=== PATIENT | female | born 1970 | race Caucasian/White ===

== ENCOUNTER → 2017-06-29 | Outpatient (CLI) | payer OTHER | LOC: FIMAGING 08:48 | PROVIDERS: ATTEND Obstetrics & Gynecology Gynecology | DX: Z12.31 Encounter for screening mammogram for malignant neoplasm of breast (principal); Z80.3 Family history of malignant neoplasm of breast | CPT/HCPCS: G0202 ==

== ENCOUNTER → 2018-06-12 | Outpatient (CLI) | payer OTHER | LOC: FIMAGING 08:36 | PROVIDERS: ATTEND Physician Assistant Medical | DX: S92.531A Displaced fracture of distal phalanx of right lesser toe(s), initial encounter for closed fracture (principal) ==

== ENCOUNTER → 2018-07-03 | Outpatient (CLI) | payer OTHER | LOC: FIMAGING 07:40 | PROVIDERS: ATTEND Obstetrics & Gynecology Gynecology | DX: Z12.31 Encounter for screening mammogram for malignant neoplasm of breast (principal) ==

== ENCOUNTER 2018-10-15 08:38 | Emergency (ER) | payer OTHER ==
[2018-10-15] MEDS ORDERED: fentaNYL 100 MCG/2 ML INJ IVP ONE (08:52)
[2018-10-15] MEDS ORDERED: NS 1,000 ML IV ONE (08:52)
[2018-10-15] MEDS ORDERED: ONDANSETRON 4 MG/2 ML VIAL IVP ONE (08:52)
--- NOTE | 2018-10-15 09:02 | EDPHY ---
H & P Time Seen by Provider: 10/15/18 08:52 HPI/ROS: CHIEF COMPLAINT: Abdominal pain HISTORY OF PRESENT ILLNESS: The patient is a 48-year-old female who presents emergency department with right lower quadrant abdominal pain. The patient's symptoms started on Saturday. She had mild right lower quadrant pain that then became diffuse lower abdominal pain. It was vague and the patient thought she just had a slight bug. However, over the past day her symptoms have worsened and focused into the right lower quadrant. She has had no nausea or vomiting. No dysuria frequency. No fevers or chills. Patient just finished her menstrual cycle. Patient has no history of abdominal surgery. REVIEW OF SYSTEMS: 10 systems were reveiwed and are negative with the exception of the elements mentioned in the history of present illness. Past Medical/Surgical History: Includes hypothyroidism Past surgical history: No abdominal surgery Social history: Patient does not smoke Smoking Status: Never smoked Physical Exam: Vitals noted GENERAL: Mildly uncomfortable appearing, alert. HEENT: Eyes normal to inspection, normal pharynx, no signs of dehydration. NECK: Normal, supple. RESPIRATORY: Clear to auscultation bilaterally, no rales, rhonchi or wheezing. CVS: Regular rate and rhythm, no rubs, murmurs, or gallops. ABDOMEN: Soft, right lower quadrant tenderness to palpation with no rebound or guarding, nondistended, no organomegaly. BACK: Normal to inspection, no CVA tenderness. SKIN: Normal color, no rash, warm, dry. No pallor. EXTREMITIES: No pedal edema, no calf tenderness, no Homans sign or cords, no joint swelling. NEURO/PSYCH: Alert and oriented, normal mood and affect, normal motor sensory exam. Constitutional: Initial Vital Signs Temperature (C) 37.5 C 10/15/18 08:42 Heart Rate 72 10/15/18 08:42 Respiratory Rate 18 10/15/18 08:42 Blood Pressure 121/68 H 10/15/18 08:42 O2 Sat (%) 96 10/15/18 08:42 O2 Delivery Mode Room Air Allergies/Adverse Reactions: No Known Allergies Allergy (Verified 10/15/18 08:47) Home Medications: Medication Instructions Recorded Synthroid 05/19/15 Violet Allergy 10/15/18 Ondansetron Odt [Zofran Odt 4 mg 4 mg PO Q4PRN PRN #7 tab 10/15/18 (*)] oxyCODONE/APAP 5/325 [Percocet 1 - 2 tab PO Q4PRN PRN #11 tab 10/15/18 5/325 (*)] Medical Decision Making - Diagnostics Imaging Results: Imaging Impressions Pelvic/Renal Ultrasound 10/15/18 08:57 Impression: 1. Two complex cysts in the right ovary, which could represent hemorrhagic cysts but are nonspecific. Six-week follow up ultrasound is recommended. 2. 1.6 cm hypoechoic submucosal structure that could represent a submucosal fibroid, distorting the endometrium, polyp, or other etiology. If the patient has irregular bleeding, consider direct visualization. 3. Additional findings as above. Abdomen CT 10/15/18 10:44 Impression: 1. Complex fluid collection right adnexa, most likely related to acute hemorrhagic cyst in the right ovary. Given normal white count, tubo-ovarian abscess or phlegmon secondary to distal appendicitis are considered unlikely. Six-week follow-up ultrasound is recommended to document resolution of the findings. 2. Submucosal fibroid versus uterine polyp. 3. Additional findings as above. Findings discussed with Dr. Katty Dent on 10/15/2018 at 11:35. ED Course/Re-evaluation: In the emergency department I discussed possible etiologies with the patient. I answered all her questions. IV was placed. Patient was given normal saline 1 L IV for hydration. She was given fentanyl 50 mcg IV for pain. She is given Zofran 4 mg IV for potential nausea with the pain medication. Ultrasound was ordered. Patient's white count is mildly elevated at 10. Hematocrit is normal. Patient' s chemistry panel is unremarkable. Patient's is negative. UA shows 1+ leuk esterase. Negative nitrite. I rechecked the patient on return from ultrasound. She states she was cold. Her pain is better controlled. Ultrasound: Please refer the dictated report by Dr. Gay. The patient has no visible appendix. No signs of appendicitis. Patient has 2 complex cyst in the right ovary which could represent hemorrhagic cyst. There is a 1.6 cm hypoechoic submucosal structure that could represent a submucosal fibroid. I discussed the results with the patient. I answered all her questions. Patient states her pain was improved. However, on exam she start right lower quadrant tenderness palpation with no rebound or guarding. She is given Toradol 50 mg IV. I discussed diagnostic options. Patient would prefer CT imaging at this time. This was ordered. CT of the abdomen pelvis: Please refer the dictated report by Dr. Gay. There is a normal appearing base of the appendix. There is the ovarian cyst with free fluid present. 1200: I rechecked the patient. She was feeling much better. She had minimal right lower quadrant tenderness palpation with no rebound or guarding. The patient was given warnings. She felt comfortable with discharge. She will return with worsening symptoms. She understands limitations of testing thus far. Differential Diagnosis: My differential includes but is not limited to appendicitis, ovarian cyst, ovarian torsion, , ectopic , urinary tract infection, pyelonephritis, kidney stone, small-bowel obstruction, perforation, constipation - Data Points Laboratory Results: 10/15/18 08:56 POC Sodium 140 mEq/L mEq/L (135-145) POC Potassium 3.3 mEq/L mEq/L (3.3-5.0) POC Chloride 103.0 mEq/L mEq/L (97-110) POC Total CO2 26 mEq/L mEq/L (22-31) POC BUN 7 mg/dL mg/dL (7-23) POC Creatinine 0.8 mg/dL mg/dL (0.6-1.0) POC Glucose 143 mg/dL H mg/dL (70-100) POC Calcium 9.4 mg/dL mg/dL (8.5-10.4) Medications Given: Discontinued Medications Fentanyl (Sublimaze) 50 mcg IVP EDNOW ONE Stop: 10/15/18 08:53 Last Admin: 10/15/18 09:03 Dose: 50 mcg Sodium Chloride (Ns) 1,000 mls @ 0 mls/hr IV EDNOW ONE; Wide Open PRN Reason: Protocol Stop: 10/15/18 08:53 Last Admin: 10/15/18 08:55 Dose: 1,000 mls Ketorolac Tromethamine (Toradol) 15 mg IVP EDNOW ONE Stop: 10/15/18 10:31 Last Admin: 10/15/18 10:41 Dose: 15 mg Ondansetron HCl (Zofran) 4 mg IVP EDNOW ONE Stop: 10/15/18 08:53 Last Admin: 10/15/18 08:59 Dose: 4 mg Point of Care Test Results: CBC CBC Collection Date 10/15/18 CBC Collection Time 08:45 WBC 10.6 RBC 4.53 HGB 13.5 HCT 39.5 PLT 302 Neut # 7.7 Neut 72.6 LYMPH # 2.4 LYMPH 22.6 Other WBC # 0.5 Other WBC 4.8 MCV 87.2 Chemistry 10/15/18 08:56 POC Sodium 140 mEq/L mEq/L (135-145) POC Potassium 3.3 mEq/L mEq/L (3.3-5.0) POC Chloride 103.0 mEq/L mEq/L (97-110) POC Total CO2 26 mEq/L mEq/L (22-31) POC BUN 7 mg/dL mg/dL (7-23) POC Creatinine 0.8 mg/dL mg/dL (0.6-1.0) POC Glucose 143 mg/dL H mg/dL (70-100) POC Calcium 9.4 mg/dL mg/dL (8.5-10.4) Urine Collection Date 10/15/18 Collection Time 09:45 HCG Results Negative Urine Dip Collection Date 10/15/18 Collection Time 09:45 Specific [place] (1.002-1.030) 1.030 PH (5.0-7.5) 5.5 Leukocytes (Negative) 1+ Nitrites (Negative) Negative Protein (Negative) Negative Glucose (Negative) Negative Ketones (Negative) Negative Urobilnogen (0.2-1.0 EU) 0.2 Bilirubin (Negative) Negative Blood (Negative) 1+ Departure - Departure Disposition: Home, Routine, Self-Care Clinical Impression: Abdominal pain Qualifiers: Abdominal location: right lower quadrant Qualified Code(s): R10.31 - Right lower quadrant pain Ovarian cyst Qualifiers: Laterality: right Qualified Code(s): N83.201 - Unspecified ovarian cyst, right side Condition: Good Instructions: Abdominal Pain (ED), Ovarian Cyst (ED) Additional Instructions: You have an ovarian cyst on imaging. This can cause abdominal pain. However, if you develope increasing pain, fever or any other concerns return to the emergency department for further evaluation. You been given follow-up information with the on-call inclusion internship. If your own inclusion internship call to make an appointment. The radiologist recommended that you have a 6 week follow- up ultrasound for the findings in the emergency department. Referrals: Amena Quintanilla DO [Doctor of Osteopathy] - 5-7 days, call for appt. Prescriptions: Ondansetron Odt [Zofran Odt 4 mg (*)] 4 mg PO Q4PRN PRN #7 tab PRN Reason: For Nausea & Vomiting oxyCODONE/APAP 5/325 [Percocet 5/325 (*)] 1 - 2 tab PO Q4PRN PRN #11 tab PRN Reason: For Moderate To Severe Pain
[2018-10-15] MEDS ORDERED: KETOROLAC 15 MG/1 ML SDV IVP ONE (10:30)
[2018-10-15] MEDS ORDERED: IOPAMIDOL (ISOVUE 370) 100 ML BTL IV ONE (10:55)
[2018-10-15] MEDS ORDERED: IOPAMIDOL (ISOVUE-370) 150 ML BTL IV ONE (10:56)
[2018-10-15 12:27] VITALS: BP 113/71
== END 2018-10-15 13:03 | disposition home or self-care (01) ==
LOC: CED 08:38
DX: R10.31 Right lower quadrant pain (principal); N83.201 Unspecified ovarian cyst, right side; E86.9 Volume depletion, unspecified
CPT/HCPCS: 74177-PO; 76705-PO; 76856-PO; 80048-ER; 96361-ER; 96374-ER; 96375-ER; J1885; J2405; J3010; Q9967

== ENCOUNTER 2019-01-17 09:41 | Emergency (ER) | payer OTHER ==
--- NOTE | 2019-01-17 10:05 | EDPHY ---
H & P Stated Complaint: pain with deep inspiration since Thur Time Seen by Provider: 01/17/19 09:54 HPI/ROS: CHIEF COMPLAINT: Right lower chest pleuritic pain x3 days HISTORY OF PRESENT ILLNESS: 48-year-old immunocompetent female with no history of exogenous estrogen use, nonsmoker, no VTE personal or family history, complaining of 3 days of right lower rib pleuritic chest pain present only with deep inspiration. She notes antecedent URI symptoms including productive cough. She also notes a new exercise regimen. Denies: Back pain, radiation pain, chest pain, dyspnea, chest pain with exertion, dyspnea with exertion beyond that expected with exertional activity, abdominal pain, nausea, vomiting, hemoptysis, peripheral edema, immobilization, malignancy history, recent surgery PRIMARY CARE PROVIDER: REVIEW OF SYSTEMS: 10 systems reviewed and negative with the exception of the elements mentioned in the history of present illness PAST MEDICAL & SURGICAL HISTORY: Ovarian cyst. No VTE history SOCIAL HISTORY:Nonsmoker. No drug use. No cocaine use. FAMILY HISTORY:[no family VTE history PHYSICAL EXAM (Prior to examination, patient consented to physical exam, hands were washed and my usual and customary physical exam procedures followed) 1) GENERAL: Well-developed, well-nourished, alert and oriented. Appears to be in no acute distress. 2) HEAD: Normocephalic, atraumatic 3) HEENT: Pupils equal, round, reactive to light bilaterally. Sclera anicteric. 4) NECK: Full range of motion, no meningeal signs. 5) LUNGS: Clear auscultation bilaterally, no wheezes, no rhonchi, no retractions. No skin lesions. No vesicles. 6) HEART: Regular rate and rhythm, no murmur, no heave, no gallop. 7) ABDOMEN: No guarding, no rebound, no focal tenderness, negative McBurney's, negative Herrera's, negative Rovsing's, negative peritoneal sign, 8) MUSCULOSKELETAL: Moving all extremities, no focal areas of tenderness, no obvious trauma. No peripheral edema or discoloration. Negative Homans no palpable cord. 9) BACK: No CVA tenderness, no midline vertebral tenderness, no fluctuance, no step-off, no obvious trauma, no visual or palpable abnormality. 10) SKIN: No rash, no petechiae. 11) Psychiatric: Patient is oriented X 3, there is no agitation. DIFFERENTIAL DIAGNOSIS: In no particular order including but not limited to lower lobe pneumonia, pulmonary emboli, muscle strain - Personal History LMP (Females 10-55): Now Current Tetanus/Diphtheria Vaccine: Unsure Current Tetanus Diphtheria and Acellular Pertussis (TDAP): Unsure - Medical/Surgical History Hx Asthma: No Hx Chronic Respiratory Disease: No Hx Diabetes: No Hx Cardiac Disease: No Hx Renal Disease: No Hx Cirrhosis: No Hx Alcoholism: No Hx HIV/AIDS: No Hx Splenectomy or Spleen Trauma: No Other PMH: HYPOTHYROID - Social History Smoking Status: Never smoked Constitutional: Initial Vital Signs Temperature (C) 37.1 C 01/17/19 09:46 Heart Rate 60 01/17/19 09:46 Respiratory Rate 18 01/17/19 09:46 Blood Pressure 118/62 01/17/19 09:46 O2 Sat (%) 98 01/17/19 09:46 O2 Delivery Mode Room Air Allergies/Adverse Reactions: No Known Allergies Allergy (Verified 10/15/18 08:47) Home Medications: Medication Instructions Recorded Synthroid 05/19/15 Violet Allergy 10/15/18 Ondansetron Odt [Zofran Odt 4 mg 4 mg PO Q4PRN PRN #7 tab 10/15/18 (*)] oxyCODONE/APAP 5/325 [Percocet 1 - 2 tab PO Q4PRN PRN #11 tab 10/15/18 5/325 (*)] Medical Decision Making - Diagnostics Imaging Results: Imaging Impressions Chest X-Ray 01/17/19 10:03 Impression: Normal chest. Chest/Thorax CTA 01/17/19 11:50 Impression: Negative CT examination of the chest for acute pulmonary thromboembolic disease. Results called to Pedro Callaway PA-C at 12:30 PM at the time of the interpretation. Images reviewed myself ED Course/Re-evaluation: 10:03 a.m.: Will obtain chest x-ray. Will hold on further diagnostic studies at this time. 11:51 a.m.: Patient has elevated D-dimer of 3.9 with pleuritic chest pain. Recommended CT angiography to evaluate possible pulmonary embolus. Indications risks benefits discussed with patient and she consents. 1:10 p.m.: Patient was re-evaluated with serial exams. Discussed with the patient her negative CT angiography showing no pulmonary embolus. Doubt cardiac pathology. Subsequently no troponin was obtained as I have a low pretest suspicion for acute coronary syndrome. EKG was obtained showing sinus rhythm. The specific etiology of the patient's symptoms may be multifactorial at this point is incompletely clear. At this point I think her diagnostic studies are reassuring and I think she can be discharged home safely with the recommendation to follow up closely with primary care provider this week (today is Saturday). Definitely if she develops new or worsening symptoms to seek immediate medical attention. She feels comfortable being discharged. All questions and concerns addressed by myself. Patient feels comfortable being discharged. All questions and concerns addressed by myself. Patient given my usual and customary discharge precautions and instructions regarding their clinical impression. Care of patient under supervision of secondary supervising physician Dr Neal with whom I discussed case. - Data Points Laboratory Results: Laboratory Results 01/17/19 11:00 01/17/19 11:00 01/17/19 01/17/19 01/17/19 11:00 11:00 11:00 WBC RBC Hgb Hct MCV MCH MCHC RDW Plt Count MPV Neut % (Auto) Lymph % (Auto) Bee % (Auto) Eos % (Auto) Baso % (Auto) Nucleat RBC Rel Count Absolute Neuts (auto) Absolute Lymphs (auto) Absolute Monos (auto) Absolute Eos (auto) Absolute Basos (auto) Absolute Nucleated RBC Immature Gran % Immature Gran # D-Dimer 3.94 ug/mLFEU H ug/mLFEU (0.00-0.50) Sodium 138 mEq/L mEq/L (135-145) Potassium 4.6 mEq/L mEq/L (3.5-5.2) Chloride 108 mEq/L mEq/L (97-110) Carbon Dioxide 24 mEq/l mEq/l (22-31) Anion Gap 6 mEq/L mEq/L (6-14) BUN 10 mg/dL mg/dL (7-23) Creatinine 0.9 mg/dL mg/dL (0.6-1.0) Estimated GFR > 60 Glucose 91 mg/dL mg/dL (70-100) Calcium 9.0 mg/dL mg/dL (8.5-10.4) Total Bilirubin 0.3 mg/dL mg/dL (0.1-1.4) Conjugated Bilirubin 0.1 mg/dL mg/dL (0.0-0.5) Unconjugated Bilirubin 0.2 mg/dL mg/dL (0.0-1.1) AST 19 IU/L IU/L (14-46) ALT 21 IU/L IU/L (9-52) Alkaline Phosphatase 66 IU/L IU/L (38-126) Total Protein 6.5 g/dL g/dL (6.3-8.2) Albumin 3.7 g/dL g/dL (3.5-5.0) Lipase 58 IU/L IU/L (23-300) Beta HCG, Qual NEGATIVE 01/17/19 11:00 WBC 5.69 10^3/uL 10^3/uL (3.80-9.50) RBC 3.94 10^6/uL L 10^6/uL (4.18-5.33) Hgb 10.7 g/dL L g/dL (12.6-16.3) Hct 33.6 % L % (38.0-47.0) MCV 85.3 fL fL (81.5-99.8) MCH 27.2 pg L pg (27.9-34.1) MCHC 31.8 g/dL L g/dL (32.4-36.7) RDW 13.2 % % (11.5-15.2) Plt Count 244 10^3/uL 10^3/uL (150-400) MPV 10.1 fL fL (8.7-11.7) Neut % (Auto) 75.4 % H % (39.3-74.2) Lymph % (Auto) 17.9 % % (15.0-45.0) Bee % (Auto) 4.9 % % (4.5-13.0) Eos % (Auto) 1.2 % % (0.6-7.6) Baso % (Auto) 0.4 % % (0.3-1.7) Nucleat RBC Rel Count 0.0 % % (0.0-0.2) Absolute Neuts (auto) 4.29 10^3/uL 10^3/uL (1.70-6.50) Absolute Lymphs (auto) 1.02 10^3/uL 10^3/uL (1.00-3.00) Absolute Monos (auto) 0.28 10^3/uL L 10^3/uL (0.30-0.80) Absolute Eos (auto) 0.07 10^3/uL 10^3/uL (0.03-0.40) Absolute Basos (auto) 0.02 10^3/uL 10^3/uL (0.02-0.10) Absolute Nucleated RBC 0.00 10^3/uL 10^3/uL (0-0.01) Immature Gran % 0.2 % % (0.0-1.1) Immature Gran # 0.01 10^3/uL 10^3/uL (0.00-0.10) D-Dimer Sodium Potassium Chloride Carbon Dioxide Anion Gap BUN Creatinine Estimated GFR Glucose Calcium Total Bilirubin Conjugated Bilirubin Unconjugated Bilirubin AST ALT Alkaline Phosphatase Total Protein Albumin Lipase Beta HCG, Qual Departure - Departure Disposition: Home, Routine, Self-Care Clinical Impression: Pleuritic chest pain Condition: Good Instructions: Pleurisy (ED) Additional Instructions: Return to emergency department if you develop new or worsening symptoms, if you develop chest pain with exertion, shortness of breath with exertion or any other symptoms that concern you. I recommend you take ibuprofen 600 mg every 6 hr for the next 3 days. Discontinue this if you developed abdominal discomfort , blood in her stool or black stools. Referrals: [facility] [Provider Group] - 2-3 days, call for appt.
[2019-01-17 11:16] LABS: PLATELET COUNT 244 10^3/uL (150-400)
[2019-01-17] MEDS ORDERED: IOPAMIDOL (ISOVUE 370) 100 ML BTL IV ONE (11:55)
[2019-01-17 13:31] VITALS: BP 112/67
--- NOTE | 2019-01-21 17:43 | CPEKG ---
Test Reason : OPEN Blood Pressure : / mmHG Vent. Rate : 053 BPM Atrial Rate : 052 BPM P-R Int : 157 ms QRS Dur : 094 ms QT Int : 452 ms P-R-T Axes : -04 032 -05 degrees QTc Int : 425 ms Sinus rhythm T abnormalities, inferior leads Confirmed by Britta German ([id number]) on 01/21/2019 5:43:19 PM Referred By: BRITTA GERMAN Confirmed By:Britta Germna
== END 2019-01-17 13:32 | disposition home or self-care (01) ==
DX: R07.81 Pleurodynia (principal)
CPT/HCPCS: Q9967

== ENCOUNTER → 2019-01-21 | Outpatient (CLI) | payer OTHER ==
[~2019-01-21] MED LIST: GADOBUTROL 10 ML VIAL IVP ONE
== END ==
LOC: FIMAGING 06:37
PROVIDERS: ATTEND Obstetrics & Gynecology Gynecology
DX: N85.8 Other specified noninflammatory disorders of uterus (principal); N83.02 Follicular cyst of left ovary; N83.01 Follicular cyst of right ovary; N83.6 Hematosalpinx
CPT/HCPCS: A9585

== ENCOUNTER → 2019-03-02 | Outpatient (CLI) | payer OTHER | LOC: FIMAGING 16:12 ==

== ENCOUNTER 2019-03-17 05:50 | Day surgery (SDC) | payer OTHER | END 2019-03-17 13:36 | disposition home or self-care (01) | LOC: FSGY 05:50 ==